=== PATIENT | male | born 1945 | race Caucasian/White ===

== ENCOUNTER 2021-09-23 12:24 | Inpatient (IN) | payer OTHER ==
[2021-09-23] MEDS ORDERED: ACETAMINOPHEN 1000 MG/100 ML BAG IVPB ONE (12:47)
[2021-09-23] MEDS ORDERED: SODIUM CHLORIDE 0.9% 500 ML INFUS.BAG IV ONE ×4 (12:47→17:45)
[2021-09-23] MEDS ORDERED: ALBUTEROL SO4 2.5/IPRATROPIUM 0.5 INH SOL 3 ML VIAL.NEB. NEB ONE (13:18)
[2021-09-23 13:51] LABS: HEMATOCRIT 47.2 % (35.4-49); HEMOGLOBIN 14.8 GM/dL (11.7-16.9); MCH 29.9 pg (25.7-33.7); MCHC 31.4 g/dl (32.0-35.9); MEAN CELL VOLUME 95.3 fl (80-96); MEAN PLT VOLUME 12.1 fl (7.5-11.1); PLATELET COUNT 133 10^3/uL (134-434); RBC 4.95 M/mm3 (4.00-5.60); RDW 15.4 % (11.9-15.9); WHITE BLOOD COUNT 6.6 K/mm3 (4.0-10.0)
[2021-09-23 14:11] LABS: CHLORIDE 124 mmol/L (98-107); SODIUM 151 mmol/L (136-145)
[2021-09-23 14:14] LABS: CALCIUM 8.5 mg/dL (8.5-10.1)
[2021-09-23 14:15] LABS: ANION GAP 8 MMOL/L (8-16); BLOOD UREA NITROGEN 75.8 mg/dL (7-18); CO2 19 mmol/L (21-32); GLUCOSE,RANDOM 177 mg/dL (74-106)
[2021-09-23 14:18] LABS: CREATININE 1.6 mg/dL (0.55-1.3); INR 2.87 (0.83-1.09); PROTHROMBIN TIME (PATIENT) 33.3 SEC (9.7-13.0); SGOT/AST 28 U/L (15-37); SGPT/ALT 20 U/L (13-61)
[2021-09-23 14:19] LABS: ACTIVATED PTT 50.3 SECONDS (25.2-36.5)
[2021-09-23 14:20] LABS: ALK PHOS 117 U/L (45-117); BILIRUBIN,TOTAL 0.5 mg/dL (0.2-1); TOT PROT 6.1 g/dl (6.4-8.2)
[2021-09-23 14:50] LABS: ANISOCYTOSIS 0; HELMET CELLS 0; HOWELL-JOLLY BODIES 0; MACROCYTOSIS 0; OVALOCYTE 0; ROULEAU 0; SICKELED CELLS 0; TARGET CELLS 0; TEAR DROP CELLS 0; TOXIC GRANULATION 0
[2021-09-23] MEDS ORDERED: PIPERACILLIN/TAZOB 3.375 GM 3.375 GM in DEXTROSE 5%-WATER - 50 ML IVPB ONE (14:56)
[2021-09-23] MEDS ORDERED: VANCOMYCIN 1 GM in D5W (PRE-DOCKED) 1,000 MG/250 ML IVPB ONE (14:56)
[2021-09-23] MEDS ORDERED: PIPERACILLIN/TAZOB 3.375 GM 3.375 GM/50 ML BAG IVPB ONE (15:24)
[2021-09-23 15:33] LABS: EPI CELLS 21 /uL (0-25.1); HYALINE CASTS 5 /uL (0-3.1); URINE APPEARANCE CLOUDY; URINE BACTERIA 8 /uL (0-1359); URINE BILIRUBIN NEGATIVE (NEGATIVE); URINE COLOR DK YELLOW; URINE GLUCOSE (UA) NEGATIVE (NEGATIVE); URINE KETONE NEGATIVE (NEGATIVE); URINE LEUK ESTERASE NEGATIVE (NEGATIVE); URINE NITRITE NEGATIVE (NEGATIVE); URINE PROTEIN TRACE (NEGATIVE); URINE RBC 403 /uL (0-23.9); URINE WBC 27 /uL (0-25.8)
[2021-09-23 15:45] LABS: ARTERIAL BLD GAS O2 SATURATION 94.3 % (95-98); ARTERIAL BLOOD GAS BASE EXCESS -7.2 mmol/L (-2-2); ARTERIAL BLOOD GAS PO2 72.8 mmHg (80-100); ARTERIAL BLOOD GAS pH 7.355 (7.350-7.450)
[2021-09-23 15:46] LABS: ALLENS TEST POSITIVE
[2021-09-23] MEDS ORDERED: VANCOMYCIN 1 GRAM (PRE-DOCKED) 1,000 MG/250 ML BAG IVPB ONE (16:01)
[2021-09-23] MEDS ORDERED: HYDROCORTISONE SOD SUCCINATE 100 MG/2 ML VIAL IVPUSH ONE (16:27)
[2021-09-23] MEDS ORDERED: HYDROCORTISONE SOD SUCCINATE 100 MG/2 ML VIAL ONE (16:50)
[2021-09-23] MEDS ORDERED: MIDAZOLAM HCL 2 MG/2 ML SINGLE DOSE VIAL IVPUSH ONE (17:05)
[2021-09-23] MEDS ORDERED: MIDAZOLAM HCL 2 MG/2 ML SINGLE DOSE VIAL ONE (17:08)
[2021-09-23] MEDS ORDERED: NOREPINEPHRINE BITARTRATE 4 MG/4 ML ML IV ONE (18:20)
[2021-09-23] MEDS: NOREPINEPHRINE BITARTRATE 8,000 MCG in SODIUM CHLORIDE 492 ML IV SCH (18:33)
[2021-09-23] MEDS ORDERED: NOREPINEPHRINE BITARTRATE 16,000 MCG in SODIUM CHLORIDE 484 ML IV SCH (19:00)
[2021-09-23] MEDS: DEXTROSE 5%-0.45% SALINE 1,000 ML IV SCH (19:19)
[2021-09-23] MEDS ORDERED: FUROSEMIDE 40 MG/4 ML INJECTABLE VIAL IVPUSH ONE (20:32)
[2021-09-23] MEDS: INSULIN SLIDING SCALE (NOVOLOG) 1 VIAL SQ SCH (23:03)
[2021-09-23] MEDS ORDERED: RAPID SEQUENCE INTUBATION KIT NR ONE (23:06)
[2021-09-23 23:24] LABS: ALLENS TEST POSITIVE; ARTERIAL BLOOD GAS BASE EXCESS -9.9 mmol/L (-2-2); ARTERIAL BLOOD GAS PO2 171.6 mmHg (80-100); ARTERIAL BLOOD GAS pH 7.265 (7.350-7.450)
[2021-09-24] MEDS: PIPERACILLIN/TAZOB 4.5 GM 4.5 GM in DEXTROSE 5%-WATER 100 ML IVPB SCH (00:04)
[2021-09-24] MEDS: MUPIROCIN 2% TOPICAL OINTMENT FOR DECOLONIZATION NS SCH ×3 (00:04→21:29)
[2021-09-24] MEDS: CHLORHEXIDINE GLUCONATE 4% CLEANSER FOR DECOLONIZATION TP SCH ×2 (00:05→21:29)
[2021-09-24] MEDS ORDERED: PIPERACILLIN/TAZOBACTAM 4.5 GM VIAL IVPB ONE ×2 (00:57→08:14)
[2021-09-24] MEDS ORDERED: DEXTROSE 5%-WATER 100 ML IVPB ONE ×2 (00:57→08:15)
[2021-09-24] MEDS: INSULIN SLIDING SCALE (NOVOLOG) 1 VIAL SQ SCH ×4 (06:18→22:54)
[2021-09-24 06:54] LABS: BASO % 0.1 % (0-2.0); HEMATOCRIT 42.1 % (35.4-49); HEMOGLOBIN 13.8 GM/dL (11.7-16.9); LYMPH % 3.1 % (8-40); MCH 30.8 pg (25.7-33.7); MCHC 32.7 g/dl (32.0-35.9); MEAN CELL VOLUME 94.3 fl (80-96); MEAN PLT VOLUME 11.4 fl (7.5-11.1); MONO % 5.9 % (3.8-10.2); NEUT % 90.9 % (42.8-82.8); PLATELET COUNT 127 10^3/uL (134-434); RBC 4.47 M/mm3 (4.00-5.60); RDW 15.8 % (11.9-15.9); WHITE BLOOD COUNT 9.7 K/mm3 (4.0-10.0)
[2021-09-24 07:13] LABS: CALCIUM 8.3 mg/dL (8.5-10.1)
[2021-09-24 07:14] LABS: BLOOD UREA NITROGEN 65.1 mg/dL (7-18); MAGNESIUM 2.2 mg/dL (1.8-2.4)
[2021-09-24 07:17] LABS: CREATININE 1.2 mg/dL (0.55-1.3); PHOSPHOROUS 3.1 mg/dL (2.5-4.9)
[2021-09-24 07:18] LABS: BILIRUBIN,TOTAL 0.5 mg/dL (0.2-1); TOT PROT 5.4 g/dl (6.4-8.2)
[2021-09-24] MEDS ORDERED: LACTATED RINGERS SOLUTION 1,000 ML/1,000 ML INFUS.BAG IV STA ×2 (09:55→13:19)
[2021-09-24] MEDS ORDERED: PIPERACILLIN/TAZOBACTAM 3.375 GM VIAL IVPB ONE ×3 (10:07→21:28)
[2021-09-24] MEDS ORDERED: DEXTROSE 5%-WATER - 50 ML IVPB ONE ×3 (10:07→21:28)
[2021-09-24] MEDS: KCL 10 MEQ IVPB 10 MEQ/100 ML INFUS.BAG IVPB SCH ×2 (10:10→11:11)
[2021-09-24] MEDS: ENOXAPARIN NA (PORCINE) 40 MG/0.4 ML DISP.SYRIN SQ SCH (10:10)
[2021-09-24] MEDS: PIPERACILLIN/TAZOB 3.375 GM 3.375 GM in DEXTROSE 5%-WATER - 50 ML IVPB SCH ×2 (10:10→17:53)
[2021-09-24 11:08] LABS: SARS-CoV-2 NAA Not Detected (Not Detected)
[2021-09-24] MEDS: VANCOMYCIN/WATER FOR INJ (PEG) 1,000 MG/200 ML BAG IVPB SCH ×2 (11:11→21:29)
[2021-09-24] MEDS ORDERED: LACTATED RINGERS SOLUTION 1,000 ML/1,000 ML INFUS.BAG IV SCH (13:30)
[2021-09-24] MEDS: NOREPINEPHRINE BITARTRATE 8,000 MCG in SODIUM CHLORIDE 492 ML IV SCH (18:52)
[2021-09-24] MEDS: DEXTROSE 5%-0.45% SALINE 1,000 ML IV SCH (21:29)
[2021-09-25] MEDS: PIPERACILLIN/TAZOB 3.375 GM 3.375 GM in DEXTROSE 5%-WATER - 50 ML IVPB SCH ×3 (02:22→18:11)
[2021-09-25] MEDS: INSULIN SLIDING SCALE (NOVOLOG) 1 VIAL SQ SCH ×2 (07:18→10:25)
[2021-09-25] MEDS ORDERED: FUROSEMIDE INJECTION 100 MG in DEXTROSE 5%-WATER - 90 ML IVPB SCH (07:30)
[2021-09-25] MEDS ORDERED: FUROSEMIDE INJECTION 100 MG in DEXTROSE 5%-WATER - 40 ML IVPB SCH (08:30)
[2021-09-25] MEDS ORDERED: PIPERACILLIN/TAZOBACTAM 3.375 GM VIAL IVPB ONE ×2 (08:52→18:09)
[2021-09-25] MEDS ORDERED: DEXTROSE 5%-WATER - 50 ML IVPB ONE ×2 (08:53→18:10)
[2021-09-25] MEDS: ENOXAPARIN NA (PORCINE) 40 MG/0.4 ML DISP.SYRIN SQ SCH (09:02)
[2021-09-25] MEDS: MUPIROCIN 2% TOPICAL OINTMENT FOR DECOLONIZATION NS SCH (09:02)
[2021-09-25] MEDS: VANCOMYCIN/WATER FOR INJ (PEG) 1,000 MG/200 ML BAG IVPB SCH ×2 (10:15→21:04)
[2021-09-25 10:31] LABS: BASO % 0.3 % (0-2.0); EOS % 0.1 % (0-4.5); HEMATOCRIT 41.9 % (35.4-49); HEMOGLOBIN 13.2 GM/dL (11.7-16.9); LYMPH % 4.3 % (8-40); MCHC 31.6 g/dl (32.0-35.9); MEAN CELL VOLUME 95.1 fl (80-96); MEAN PLT VOLUME 11.9 fl (7.5-11.1); MONO % 7.5 % (3.8-10.2); NEUT % 87.8 % (42.8-82.8); PLATELET COUNT 113 10^3/uL (134-434); RBC 4.41 M/mm3 (4.00-5.60); RDW 15.7 % (11.9-15.9); WHITE BLOOD COUNT 9.3 K/mm3 (4.0-10.0)
[2021-09-25 10:50] LABS: CALCIUM 8.5 mg/dL (8.5-10.1); MAGNESIUM 2.1 mg/dL (1.8-2.4)
[2021-09-25 10:53] LABS: CREATININE 0.9 mg/dL (0.55-1.3)
[2021-09-25 10:55] LABS: BILIRUBIN,TOTAL 0.5 mg/dL (0.2-1)
[2021-09-25 11:10] LABS: ALBUMIN 1.5 g/dl (3.4-5.0)
[2021-09-25] MEDS ORDERED: DEXTROSE 5%-WATER - 1,000 ML with POTASSIUM CHLORIDE 20 MEQ IV SCH (14:00)
[2021-09-25] MEDS ORDERED: KCL 10 MEQ IVPB 10 MEQ/100 ML INFUS.BAG IVPB SCH (14:00)
[2021-09-25] MEDS: POTASSIUM CHLORIDE 20 MEQ in DEXTROSE 5%-WATER - 1,000 ML IV SCH (15:58)
[2021-09-25] MEDS: NOREPINEPHRINE BITARTRATE 8,000 MCG in SODIUM CHLORIDE 492 ML IV SCH (18:11)
[2021-09-25] MEDS: PIPERACILLIN/TAZOB 4.5 GM 4.5 GM in DEXTROSE 5%-WATER 100 ML IVPB SCH ×3 (19:34→19:39)
[2021-09-26] MEDS ORDERED: PIPERACILLIN/TAZOBACTAM 3.375 GM VIAL IVPB ONE ×3 (01:49→17:48)
[2021-09-26] MEDS ORDERED: DEXTROSE 5%-WATER - 50 ML IVPB ONE ×3 (01:50→17:48)
[2021-09-26] MEDS: PIPERACILLIN/TAZOB 3.375 GM 3.375 GM in DEXTROSE 5%-WATER - 50 ML IVPB SCH ×3 (02:10→18:01)
[2021-09-26] MEDS: POTASSIUM CHLORIDE 20 MEQ in DEXTROSE 5%-WATER - 1,000 ML IV SCH ×2 (04:06→20:03)
[2021-09-26 07:49] LABS: HEMATOCRIT 42.9 % (35.4-49); HEMOGLOBIN 13.9 GM/dL (11.7-16.9); MCH 30.5 pg (25.7-33.7); MCHC 32.5 g/dl (32.0-35.9); MEAN CELL VOLUME 93.7 fl (80-96); MEAN PLT VOLUME 11.3 fl (7.5-11.1); PLATELET COUNT 113 10^3/uL (134-434); RBC 4.57 M/mm3 (4.00-5.60); RDW 15.9 % (11.9-15.9); WHITE BLOOD COUNT 9.5 K/mm3 (4.0-10.0)
[2021-09-26 08:11] LABS: ALBUMIN 1.6 g/dl (3.4-5.0); BLOOD UREA NITROGEN 35.4 mg/dL (7-18); CALCIUM 8.1 mg/dL (8.5-10.1); MAGNESIUM 1.8 mg/dL (1.8-2.4)
[2021-09-26 08:15] LABS: BILIRUBIN,TOTAL 0.7 mg/dL (0.2-1); TOT PROT 5.2 g/dl (6.4-8.2)
[2021-09-26] MEDS: KCL 10 MEQ IVPB 10 MEQ/100 ML INFUS.BAG IVPB SCH ×2 (09:40→10:40)
[2021-09-26] MEDS: ENOXAPARIN NA (PORCINE) 40 MG/0.4 ML DISP.SYRIN SQ SCH (10:46)
[2021-09-26] MEDS: VANCOMYCIN/WATER FOR INJ (PEG) 1,000 MG/200 ML BAG IVPB SCH (10:53)
[2021-09-26] MEDS: INSULIN SLIDING SCALE (NOVOLOG) 1 VIAL SQ SCH ×2 (18:01→22:42)
[2021-09-26] MEDS: NOREPINEPHRINE BITARTRATE 8,000 MCG in SODIUM CHLORIDE 492 ML IV SCH (20:03)
[2021-09-27] MEDS ORDERED: DEXTROSE 5%-WATER - 50 ML IVPB ONE ×4 (00:49→23:42)
[2021-09-27] MEDS ORDERED: PIPERACILLIN/TAZOBACTAM 3.375 GM VIAL IVPB ONE ×4 (00:49→23:42)
[2021-09-27] MEDS: PIPERACILLIN/TAZOB 3.375 GM 3.375 GM in DEXTROSE 5%-WATER - 50 ML IVPB SCH ×3 (01:31→18:01)
[2021-09-27] MEDS: POTASSIUM CHLORIDE 20 MEQ in DEXTROSE 5%-WATER - 1,000 ML IV SCH ×2 (05:19→16:30)
[2021-09-27 06:46] LABS: HEMATOCRIT 40.3 % (35.4-49); HEMOGLOBIN 12.9 GM/dL (11.7-16.9); MCHC 32.1 g/dl (32.0-35.9); MEAN CELL VOLUME 93.3 fl (80-96); MEAN PLT VOLUME 11.8 fl (7.5-11.1); PLATELET COUNT 123 10^3/uL (134-434); RBC 4.32 M/mm3 (4.00-5.60); RDW 15.3 % (11.9-15.9); WHITE BLOOD COUNT 9.7 K/mm3 (4.0-10.0)
[2021-09-27] MEDS: INSULIN SLIDING SCALE (NOVOLOG) 1 VIAL SQ SCH ×4 (06:59→22:20)
[2021-09-27 07:07] LABS: CALCIUM 7.5 mg/dL (8.5-10.1)
[2021-09-27 07:08] LABS: ALBUMIN 1.4 g/dl (3.4-5.0); BLOOD UREA NITROGEN 25.7 mg/dL (7-18); MAGNESIUM 1.6 mg/dL (1.8-2.4)
[2021-09-27 07:10] LABS: PHOSPHOROUS 1.3 mg/dL (2.5-4.9)
[2021-09-27 07:11] LABS: CREATININE 0.8 mg/dL (0.55-1.3)
[2021-09-27 07:12] LABS: BILIRUBIN,TOTAL 0.5 mg/dL (0.2-1); TOT PROT 4.9 g/dl (6.4-8.2)
[2021-09-27] MEDS ORDERED: POTASSIUM PHOSPHATE 30 MM in DEXTROSE 5%-WATER - 250 ML IVPB ONE (08:34)
[2021-09-27] MEDS ORDERED: MAGNESIUM SULF 50% (8.12 MEQ/2 ML-1 GM VIAL) IVPB ONE ×2 (08:34→14:06)
[2021-09-27] MEDS ORDERED: FUROSEMIDE 40 MG/4 ML INJECTABLE VIAL IVPUSH ONE (08:44)
[2021-09-27] MEDS: ENOXAPARIN NA (PORCINE) 40 MG/0.4 ML DISP.SYRIN SQ SCH (10:16)
[2021-09-27] MEDS: ALBUTEROL SO4 2.5/IPRATROPIUM 0.5 INH SOL 3 ML VIAL.NEB. NEB SCH ×2 (14:55→20:40)
[2021-09-27] MEDS: KCL 10 MEQ IVPB 10 MEQ/100 ML INFUS.BAG IVPB SCH ×2 (16:08→17:09)
[2021-09-27] MEDS: NOREPINEPHRINE BITARTRATE 8,000 MCG in SODIUM CHLORIDE 492 ML IV SCH (18:02)
[2021-09-27] MEDS ORDERED: AMINO ACIDS 4.25%/D5W 1,000 ML IV SCH (20:00)
[2021-09-28] MEDS: PIPERACILLIN/TAZOB 3.375 GM 3.375 GM in DEXTROSE 5%-WATER - 50 ML IVPB SCH ×3 (01:49→17:25)
[2021-09-28] MEDS: INSULIN SLIDING SCALE (NOVOLOG) 1 VIAL SQ SCH ×4 (06:07→21:36)
[2021-09-28 07:20] LABS: HEMATOCRIT 39.4 % (35.4-49); MCH 30.5 pg (25.7-33.7); MEAN CELL VOLUME 92.4 fl (80-96); PLATELET COUNT 111 10^3/uL (134-434); RBC 4.26 M/mm3 (4.00-5.60); RDW 15.3 % (11.9-15.9); WHITE BLOOD COUNT 8.3 K/mm3 (4.0-10.0)
[2021-09-28 07:36] LABS: CALCIUM 7.9 mg/dL (8.5-10.1)
[2021-09-28 07:37] LABS: ALBUMIN 1.6 g/dl (3.4-5.0); BLOOD UREA NITROGEN 22.8 mg/dL (7-18); MAGNESIUM 2.2 mg/dL (1.8-2.4)
[2021-09-28 07:40] LABS: CREATININE 0.6 mg/dL (0.55-1.3); PHOSPHOROUS 1.6 mg/dL (2.5-4.9)
[2021-09-28 07:41] LABS: BILIRUBIN,TOTAL 0.5 mg/dL (0.2-1); TOT PROT 4.7 g/dl (6.4-8.2)
[2021-09-28] MEDS: ALBUTEROL SO4 2.5/IPRATROPIUM 0.5 INH SOL 3 ML VIAL.NEB. NEB SCH ×3 (08:36→20:37)
[2021-09-28] MEDS ORDERED: PIPERACILLIN/TAZOBACTAM 3.375 GM VIAL IVPB ONE ×2 (09:08→17:00)
[2021-09-28] MEDS ORDERED: DEXTROSE 5%-WATER - 50 ML IVPB ONE ×2 (09:08→17:00)
[2021-09-28] MEDS: ENOXAPARIN NA (PORCINE) 40 MG/0.4 ML DISP.SYRIN SQ SCH (09:45)
[2021-09-28] MEDS ORDERED: THIAMINE HCL 200 MG/2 ML VIAL IVPB SCH (10:00)
[2021-09-28] MEDS ORDERED: POTASSIUM PHOSPHATE 30 MM in DEXTROSE 5%-WATER - 250 ML IVPB ONE (10:30)
[2021-09-28] MEDS ORDERED: VANCOMYCIN 1 GM in D5W (PRE-DOCKED) 1,000 MG/250 ML IVPB ONE (10:47)
[2021-09-28] MEDS: KCL 10 MEQ IVPB 10 MEQ/100 ML INFUS.BAG IVPB SCH ×4 (11:15→13:15)
[2021-09-28] MEDS: AMINO ACIDS 4.25%/D5W 1,000 ML IV SCH ×2 (21:36→21:39)
[2021-09-29] MEDS ORDERED: PIPERACILLIN/TAZOBACTAM 3.375 GM VIAL IVPB ONE ×3 (01:21→17:00)
[2021-09-29] MEDS ORDERED: DEXTROSE 5%-WATER - 50 ML IVPB ONE ×3 (01:21→17:00)
[2021-09-29] MEDS: PIPERACILLIN/TAZOB 3.375 GM 3.375 GM in DEXTROSE 5%-WATER - 50 ML IVPB SCH ×3 (02:09→17:17)
[2021-09-29] MEDS: AMINO ACIDS 4.25%/D5W 1,000 ML IV SCH ×4 (03:01→21:53)
[2021-09-29] MEDS: INSULIN SLIDING SCALE (NOVOLOG) 1 VIAL SQ SCH ×4 (06:35→22:08)
[2021-09-29] MEDS: ALBUTEROL SO4 2.5/IPRATROPIUM 0.5 INH SOL 3 ML VIAL.NEB. NEB SCH ×3 (07:30→20:55)
[2021-09-29 07:44] LABS: HEMATOCRIT 39.8 % (35.4-49); MCHC 32.5 g/dl (32.0-35.9); MEAN CELL VOLUME 92.4 fl (80-96); MEAN PLT VOLUME 11.2 fl (7.5-11.1); PLATELET COUNT 135 10^3/uL (134-434); RBC 4.31 M/mm3 (4.00-5.60); RDW 15.1 % (11.9-15.9); WHITE BLOOD COUNT 8.4 K/mm3 (4.0-10.0)
[2021-09-29 08:08] LABS: CALCIUM 7.8 mg/dL (8.5-10.1)
[2021-09-29 08:09] LABS: ALBUMIN 1.4 g/dl (3.4-5.0); BLOOD UREA NITROGEN 21.3 mg/dL (7-18); MAGNESIUM 2.1 mg/dL (1.8-2.4)
[2021-09-29 08:12] LABS: BILIRUBIN,TOTAL 0.5 mg/dL (0.2-1); CREATININE 0.6 mg/dL (0.55-1.3)
[2021-09-29] MEDS: THIAMINE HCL 200 MG/2 ML VIAL IVPB SCH (09:27)
[2021-09-29] MEDS: ENOXAPARIN NA (PORCINE) 40 MG/0.4 ML DISP.SYRIN SQ SCH (09:29)
[2021-09-29] MEDS ORDERED: POTASSIUM PHOSPHATE 15 MM in DEXTROSE 5%-WATER - 250 ML IVPB ONE (14:22)
[2021-09-30] MEDS ORDERED: PIPERACILLIN/TAZOBACTAM 3.375 GM VIAL IVPB ONE ×3 (01:37→18:14)
[2021-09-30] MEDS ORDERED: DEXTROSE 5%-WATER - 50 ML IVPB ONE ×3 (01:37→18:14)
[2021-09-30] MEDS: PIPERACILLIN/TAZOB 3.375 GM 3.375 GM in DEXTROSE 5%-WATER - 50 ML IVPB SCH ×3 (01:47→18:27)
[2021-09-30] MEDS: INSULIN SLIDING SCALE (NOVOLOG) 1 VIAL SQ SCH ×4 (06:09→22:08)
[2021-09-30] MEDS: ALBUTEROL SO4 2.5/IPRATROPIUM 0.5 INH SOL 3 ML VIAL.NEB. NEB SCH ×3 (08:08→20:46)
[2021-09-30 09:07] LABS: BLOOD UREA NITROGEN 17.6 mg/dL (7-18); CALCIUM 7.8 mg/dL (8.5-10.1)
[2021-09-30 09:09] LABS: ALBUMIN 1.3 g/dl (3.4-5.0)
[2021-09-30 09:11] LABS: BILIRUBIN,TOTAL 0.4 mg/dL (0.2-1); CREATININE 0.5 mg/dL (0.55-1.3); PHOSPHOROUS 1.8 mg/dL (2.5-4.9); TOT PROT 4.8 g/dl (6.4-8.2)
[2021-09-30 09:12] LABS: HEMATOCRIT 39.9 % (35.4-49); HEMOGLOBIN 12.7 GM/dL (11.7-16.9); MCH 29.6 pg (25.7-33.7); MCHC 31.7 g/dl (32.0-35.9); MEAN CELL VOLUME 93.3 fl (80-96); MEAN PLT VOLUME 11.4 fl (7.5-11.1); PLATELET COUNT 131 10^3/uL (134-434); RBC 4.28 M/mm3 (4.00-5.60); RDW 15.4 % (11.9-15.9); WHITE BLOOD COUNT 6.3 K/mm3 (4.0-10.0)
[2021-09-30] MEDS ORDERED: VANCOMYCIN/WATER FOR INJ (PEG) 1,000 MG/200 ML BAG IVPB ONE (11:00)
[2021-09-30] MEDS: THIAMINE HCL 200 MG/2 ML VIAL IVPB SCH (13:58)
[2021-09-30] MEDS: ENOXAPARIN NA (PORCINE) 40 MG/0.4 ML DISP.SYRIN SQ SCH (15:13)
[2021-09-30] MEDS: KCL 10 MEQ IVPB 10 MEQ/100 ML INFUS.BAG IVPB SCH ×3 (15:16→16:38)
[2021-09-30 15:29] VITALS: BMI 26.4
[2021-09-30] MEDS: POTASSIUM CHLORIDE 20 MEQ in AMINO ACIDS 4.25%/D5W 1,000 ML IV SCH (18:27)
[2021-10-01] MEDS ORDERED: PIPERACILLIN/TAZOBACTAM 3.375 GM VIAL IVPB ONE ×3 (00:38→16:17)
[2021-10-01] MEDS ORDERED: DEXTROSE 5%-WATER - 50 ML IVPB ONE ×3 (00:38→16:17)
[2021-10-01] MEDS: PIPERACILLIN/TAZOB 3.375 GM 3.375 GM in DEXTROSE 5%-WATER - 50 ML IVPB SCH ×3 (01:01→16:59)
[2021-10-01] MEDS: INSULIN SLIDING SCALE (NOVOLOG) 1 VIAL SQ SCH ×4 (06:38→22:39)
[2021-10-01] MEDS: ALBUTEROL SO4 2.5/IPRATROPIUM 0.5 INH SOL 3 ML VIAL.NEB. NEB SCH ×3 (07:35→19:49)
[2021-10-01] MEDS: POTASSIUM CHLORIDE 20 MEQ in AMINO ACIDS 4.25%/D5W 1,000 ML IV SCH ×2 (09:39→17:39)
[2021-10-01] MEDS: ENOXAPARIN NA (PORCINE) 40 MG/0.4 ML DISP.SYRIN SQ SCH (09:39)
[2021-10-01] MEDS: VANCOMYCIN/WATER FOR INJ (PEG) 1,000 MG/200 ML BAG IVPB SCH (17:26)
[2021-10-02] MEDS ORDERED: DEXTROSE 5%-WATER - 50 ML IVPB ONE ×3 (00:58→17:24)
[2021-10-02] MEDS ORDERED: PIPERACILLIN/TAZOBACTAM 3.375 GM VIAL IVPB ONE ×3 (00:58→17:23)
[2021-10-02] MEDS: PIPERACILLIN/TAZOB 3.375 GM 3.375 GM in DEXTROSE 5%-WATER - 50 ML IVPB SCH ×3 (02:06→17:28)
[2021-10-02] MEDS: INSULIN SLIDING SCALE (NOVOLOG) 1 VIAL SQ SCH ×4 (06:00→21:23)
[2021-10-02] MEDS: ALBUTEROL SO4 2.5/IPRATROPIUM 0.5 INH SOL 3 ML VIAL.NEB. NEB SCH ×3 (07:31→20:10)
[2021-10-02] MEDS: ENOXAPARIN NA (PORCINE) 40 MG/0.4 ML DISP.SYRIN SQ SCH (10:03)
[2021-10-02] MEDS: POTASSIUM CHLORIDE 20 MEQ in AMINO ACIDS 4.25%/D5W 1,000 ML IV SCH (14:34)
[2021-10-02] MEDS: VANCOMYCIN/WATER FOR INJ (PEG) 1,000 MG/200 ML BAG IVPB SCH (18:24)
[2021-10-03] MEDS ORDERED: DEXTROSE 5%-WATER - 50 ML IVPB ONE ×3 (00:58→16:55)
[2021-10-03] MEDS ORDERED: PIPERACILLIN/TAZOBACTAM 3.375 GM VIAL IVPB ONE ×3 (00:58→16:55)
[2021-10-03] MEDS: PIPERACILLIN/TAZOB 3.375 GM 3.375 GM in DEXTROSE 5%-WATER - 50 ML IVPB SCH ×3 (01:26→17:06)
[2021-10-03] MEDS: INSULIN SLIDING SCALE (NOVOLOG) 1 VIAL SQ SCH ×4 (06:07→22:20)
[2021-10-03] MEDS: ALBUTEROL SO4 2.5/IPRATROPIUM 0.5 INH SOL 3 ML VIAL.NEB. NEB SCH ×3 (07:53→20:02)
[2021-10-03] MEDS: ENOXAPARIN NA (PORCINE) 40 MG/0.4 ML DISP.SYRIN SQ SCH (10:50)
[2021-10-03] MEDS: POTASSIUM CHLORIDE 20 MEQ in AMINO ACIDS 4.25%/D5W 1,000 ML IV SCH ×2 (11:18→16:28)
[2021-10-03] MEDS: VANCOMYCIN/WATER FOR INJ (PEG) 1,000 MG/200 ML BAG IVPB SCH (17:29)
[2021-10-04] MEDS ORDERED: PIPERACILLIN/TAZOBACTAM 3.375 GM VIAL IVPB ONE ×3 (01:14→16:44)
[2021-10-04] MEDS ORDERED: DEXTROSE 5%-WATER - 50 ML IVPB ONE ×3 (01:15→16:44)
[2021-10-04] MEDS: PIPERACILLIN/TAZOB 3.375 GM 3.375 GM in DEXTROSE 5%-WATER - 50 ML IVPB SCH ×3 (01:23→17:10)
[2021-10-04] MEDS: INSULIN SLIDING SCALE (NOVOLOG) 1 VIAL SQ SCH ×4 (06:51→21:54)
[2021-10-04 08:22] LABS: ALBUMIN 1.4 g/dl (3.4-5.0); BLOOD UREA NITROGEN 15.1 mg/dL (7-18)
[2021-10-04 08:24] LABS: CREATININE 0.4 mg/dL (0.55-1.3)
[2021-10-04 08:26] LABS: BILIRUBIN,TOTAL 0.4 mg/dL (0.2-1)
[2021-10-04] MEDS: POTASSIUM CHLORIDE 20 MEQ in AMINO ACIDS 4.25%/D5W 1,000 ML IV SCH ×2 (08:35→17:34)
[2021-10-04] MEDS: ALBUTEROL SO4 2.5/IPRATROPIUM 0.5 INH SOL 3 ML VIAL.NEB. NEB SCH ×3 (09:00→20:26)
[2021-10-04] MEDS: ENOXAPARIN NA (PORCINE) 40 MG/0.4 ML DISP.SYRIN SQ SCH (09:06)
[2021-10-04 09:14] LABS: HEMATOCRIT 39.6 % (35.4-49); HEMOGLOBIN 12.4 GM/dL (11.7-16.9); MCHC 31.3 g/dl (32.0-35.9); MEAN CELL VOLUME 92.7 fl (80-96); MEAN PLT VOLUME 11.7 fl (7.5-11.1); PLATELET COUNT 148 10^3/uL (134-434); RBC 4.27 M/mm3 (4.00-5.60); RDW 15.4 % (11.9-15.9); WHITE BLOOD COUNT 6.8 K/mm3 (4.0-10.0)
[2021-10-04] MEDS: VANCOMYCIN/WATER FOR INJ (PEG) 1,000 MG/200 ML BAG IVPB SCH (17:51)
[2021-10-05] MEDS: INSULIN SLIDING SCALE (NOVOLOG) 1 VIAL SQ SCH ×4 (06:50→21:02)
[2021-10-05] MEDS: ALBUTEROL SO4 2.5/IPRATROPIUM 0.5 INH SOL 3 ML VIAL.NEB. NEB SCH ×3 (07:55→20:32)
[2021-10-05] MEDS ORDERED: INSULIN (NOVOLOG) ASPART 100 UNITS/ML 10ML VIAL ONE (08:58)
[2021-10-05] MEDS: ENOXAPARIN NA (PORCINE) 40 MG/0.4 ML DISP.SYRIN SQ SCH (09:32)
[2021-10-05] MEDS: POTASSIUM CHLORIDE 20 MEQ in AMINO ACIDS 4.25%/D5W 1,000 ML IV SCH ×2 (11:43→17:11)
[2021-10-05] MEDS: VANCOMYCIN/WATER FOR INJ (PEG) 1,000 MG/200 ML BAG IVPB SCH (17:11)
[2021-10-06] MEDS: INSULIN SLIDING SCALE (NOVOLOG) 1 VIAL SQ SCH ×3 (06:16→17:20)
[2021-10-06] MEDS: ALBUTEROL SO4 2.5/IPRATROPIUM 0.5 INH SOL 3 ML VIAL.NEB. NEB SCH ×2 (08:25→14:30)
[2021-10-06 09:12] LABS: CALCIUM 8.5 mg/dL (8.5-10.1)
[2021-10-06 09:13] LABS: ALBUMIN 1.3 g/dl (3.4-5.0); MAGNESIUM 1.7 mg/dL (1.8-2.4)
[2021-10-06 09:16] LABS: CREATININE 0.3 mg/dL (0.55-1.3)
[2021-10-06 09:17] LABS: BILIRUBIN,TOTAL 0.4 mg/dL (0.2-1)
[2021-10-06 09:18] LABS: TOT PROT 4.9 g/dl (6.4-8.2)
[2021-10-06] MEDS: POTASSIUM CHLORIDE 20 MEQ in AMINO ACIDS 4.25%/D5W 1,000 ML IV SCH (10:17)
[2021-10-06 14:08] LABS: SARS-CoV-2 NAA Not Detected (Not Detected)
[2021-10-06 14:46] VITALS: BP 138/86; PULSE 109; TEMP 98.3
[2021-10-06] MEDS: VANCOMYCIN/WATER FOR INJ (PEG) 1,000 MG/200 ML BAG IVPB SCH (17:21)
== END 2021-10-06 18:08 | DRG 871 ==
LOC: JER 12:24 → JERBED 18:53 → JICU 20:20 → J7W 09-28 15:24
PROVIDERS: ADMIT Family Medicine; ATTEND Family Medicine
PROC: 05H633Z Insertion of Infusion Device into Left Subclavian Vein, Percutaneous Approach (ICD-10-PCS; principal; 2021-09-24)
PROC: B547ZZA Ultrasonography of Left Subclavian Vein, Guidance (ICD-10-PCS; 2021-09-24)
PROC: 06HN33Z Insertion of Infusion Device into Left Femoral Vein, Percutaneous Approach (ICD-10-PCS; 2021-09-24)
PROC: B54CZZA Ultrasonography of Left Lower Extremity Veins, Guidance (ICD-10-PCS; 2021-09-24)
PROC: 0W9B30Z Drainage of Left Pleural Cavity with Drainage Device, Percutaneous Approach (ICD-10-PCS; 2021-09-24)
DX: A41.02 Sepsis due to Methicillin resistant Staphylococcus aureus (principal); E11.00 Type 2 diabetes mellitus with hyperosmolarity without nonketotic hyperglycemic-hyperosmolar coma (NKHHC); R65.21 Severe sepsis with septic shock; J96.01 Acute respiratory failure with hypoxia; E87.0 Hyperosmolality and hypernatremia; J44.1 Chronic obstructive pulmonary disease with (acute) exacerbation; J93.9 Pneumothorax, unspecified; N17.9 Acute kidney failure, unspecified; I10 Essential (primary) hypertension; J44.9 Chronic obstructive pulmonary disease, unspecified; K11.21 Acute sialoadenitis; F03.90 Unspecified dementia, unspecified severity, without behavioral disturbance, psychotic disturbance, mood disturbance, and anxiety; E87.6 Hypokalemia; D69.6 Thrombocytopenia, unspecified; E86.0 Dehydration; R21 Rash and other nonspecific skin eruption; E11.65 Type 2 diabetes mellitus with hyperglycemia; E87.8 Other disorders of electrolyte and fluid balance, not elsewhere classified
CPT/HCPCS: 36415; 36600; 70450-TC; 71045-TC-FY; 71250-TC; 74176-TC; 74230-TC-FY; 80053; 81003; 82272; 82550; 82553; 82803; 82962; 83036; 83605; 83735; 84100; 84439; 84443; 84484; 85025; 85027; 85610; 85730; 86850; 86900; 86901; 87040; 87086; 87186; 87804; 87899; 92611-GN; 93005; 93010; 93306-TC; 94010; 94640; 97161-GP; 99291; 99292; C9803-CS; G0480; U0003; U0005

== ENCOUNTER 2023-07-26 21:55 | Inpatient (IN) | payer OTHER ==
[2023-07-26 23:22] LABS: VENOUS BASE EXCESS 3.1 mmol/L (-2-2); VENOUS O2 SATURATION 51.7 % (70-80); VENOUS PCO2 44.9 mmHg (38-52); VENOUS PH 7.415 (7.310-7.410)
[2023-07-26 23:23] LABS: BASO % 0.2 % (0-2.0); EOS % 0.1 % (0-4.5); HEMATOCRIT 38.5 % (35.4-49); HEMOGLOBIN 12.7 GM/dL (11.7-16.9); LYMPH % 6.4 % (8-40); MCH 30.6 pg (25.7-33.7); MEAN CELL VOLUME 92.7 fl (80-96); MEAN PLT VOLUME 10.6 fl (7.5-11.1); MONO % 11.8 % (3.8-10.2); NEUT % 81.5 % (42.8-82.8); PLATELET COUNT 171 10^3/uL (134-434); RBC 4.15 M/mm3 (4.00-5.60); WHITE BLOOD COUNT 10.1 K/mm3 (4.0-10.0)
[2023-07-26] MEDS ORDERED: ACETAMINOPHEN INJECTION 100 ML IVPB ONE (23:37)
[2023-07-26 23:39] LABS: EPI CELLS 9 /uL (0-25.1); HYALINE CASTS 1 /uL (0-3.1); URINE APPEARANCE CLEAR; URINE BACTERIA 1376 /uL (0-1359); URINE BILIRUBIN NEGATIVE (NEGATIVE); URINE COLOR DK YELLOW; URINE GLUCOSE (UA) NEGATIVE (NEGATIVE); URINE KETONE TRACE (NEGATIVE); URINE LEUK ESTERASE TRACE (NEGATIVE); URINE NITRITE POSITIVE (NEGATIVE); URINE PROTEIN 1+ (NEGATIVE); URINE RBC 17 /uL (0-23.9); URINE WBC 28 /uL (0-25.8)
[2023-07-26 23:50] LABS: ACTIVATED PTT 40.5 SECONDS (25.2-36.5); INR 1.17 (0.83-1.09); PROTHROMBIN TIME (PATIENT) 13.6 SEC (9.7-13.0)
[2023-07-26 23:51] LABS: POTASSIUM 4.4 mmol/L (3.5-5.1)
[2023-07-26 23:53] LABS: ALBUMIN 2.6 g/dl (3.4-5.0); BLOOD UREA NITROGEN 32.3 mg/dL (7-18); CALCIUM 8.8 mg/dL (8.5-10.1)
[2023-07-26] MEDS: ACETAMINOPHEN 1000 MG/100 ML BAG IVPB ONE (23:56)
[2023-07-26 23:58] LABS: BILIRUBIN,TOTAL 0.7 mg/dL (0.2-1); TOT PROT 6.8 g/dl (6.4-8.2)
[2023-07-27] MEDS ORDERED: AMPICILLIN NA/SULBACTAM NA 3 GM VIAL ONE (01:40)
[2023-07-27] MEDS: AMPICILLIN NA/SULBACTAM NA 3 GM in DEXTROSE 5%-WATER 100 ML IVPB ONE (01:53)
[2023-07-27] MEDS: morphine SULFATE 4 MG/ML VIAL IVPUSH ONE (02:19)
[2023-07-27] MEDS ORDERED: VANCOMYCIN/WATER 1250 MG 1,250 MG/250 ML BAG IVPB ONE (02:20)
[2023-07-27] MEDS: VANCOMYCIN/WATER 1250 MG 1,250 MG/250 ML BAG IVPB ONE (02:30)
[2023-07-27] MEDS ORDERED: MAGNESIUM HYDROX 2400MG/30ML ORAL SUSPENSION 30 ML CUP PO PRN (05:54)
[2023-07-27 06:23] LABS: BASO % 0.4 % (0-2.0); HEMATOCRIT 41.2 % (35.4-49); HEMOGLOBIN 13.1 GM/dL (11.7-16.9); LYMPH % 8.6 % (8-40); MCH 29.8 pg (25.7-33.7); MCHC 31.8 g/dl (32.0-35.9); MEAN PLT VOLUME 10.7 fl (7.5-11.1); MONO % 12.3 % (3.8-10.2); NEUT % 78.7 % (42.8-82.8); PLATELET COUNT 147 10^3/uL (134-434); RBC 4.38 M/mm3 (4.00-5.60); RDW 14.9 % (11.9-15.9); WHITE BLOOD COUNT 11.9 K/mm3 (4.0-10.0)
[2023-07-27 06:42] LABS: POTASSIUM 3.9 mmol/L (3.5-5.1)
[2023-07-27 06:44] LABS: BLOOD UREA NITROGEN 31.5 mg/dL (7-18); CALCIUM 9.2 mg/dL (8.5-10.1)
[2023-07-27 06:48] LABS: CREATININE 1.1 mg/dL (0.55-1.3)
[2023-07-27] MEDS: TAMSULOSIN HCL 0.4 MG CAP PO SCH (08:00)
[2023-07-27] MEDS: ALBUTEROL SO4 2.5/IPRATROPIUM 0.5 INH SOL 3 ML VIAL.NEB. NEB SCH (08:00)
[2023-07-27] MEDS ORDERED: ALBUTEROL SO4 2.5/IPRATROPIUM 0.5 INH SOL 3 ML VIAL.NEB. NEB ONE (09:25)
[2023-07-27] MEDS ORDERED: LORazepam 0.5 MG TABLET PO PRN (10:00)
[2023-07-27] MEDS: POTASSIUM CHLORIDE ORAL LIQUID 20 MEQ/15 ML PO SCH (10:40)
[2023-07-27] MEDS: CITALOPRAM HYDROBROMIDE 20 MG TABLET PO SCH (10:41)
[2023-07-27] MEDS: CARVEDILOL 25 MG TABLET (FP) PO SCH (10:41)
[2023-07-27] MEDS: BUMETANIDE 0.5 MG TABLET PO SCH (12:12)
[2023-07-27] MEDS: LACTATED RINGERS SOLUTION 1,000 ML/1,000 ML INFUS.BAG IV SCH (17:32)
[2023-07-27] MEDS ORDERED: AMPICILLIN NA/SULBACTAM NA 1.5 GM in SODIUM CHLORIDE 100 ML IVPB SCH (18:00)
[2023-07-27] MEDS: AMPICILLIN NA/SULBACTAM NA 1.5 GM in SODIUM CHLORIDE 100 ML IVPB SCH (18:48)
[2023-07-27] MEDS: valACYclovir HCL 500 MG TABLET (FP) PO SCH (18:48)
[2023-07-27] MEDS: MELATONIN 5 MG TABLETS PO SCH (21:59)
[2023-07-27] MEDS: FINASTERIDE 5 MG TABLET (FP) PO SCH (21:59)
[2023-07-27] MEDS: VANCOMYCIN/WATER FOR INJ (PEG) 1,000 MG/200 ML BAG IVPB SCH (22:00)
[2023-07-27] MEDS ORDERED: VANCOMYCIN 1,000 MG in DEXTROSE 5%-WATER - 250 ML IVPB SCH (23:00)
[2023-07-28 07:39] LABS: BASO % 0.4 % (0-2.0); EOS % 0.3 % (0-4.5); HEMATOCRIT 33.3 % (35.4-49); HEMOGLOBIN 11.3 GM/dL (11.7-16.9); LYMPH % 9.3 % (8-40); MCH 31.5 pg (25.7-33.7); MCHC 34.1 g/dl (32.0-35.9); MEAN CELL VOLUME 92.3 fl (80-96); MEAN PLT VOLUME 11.1 fl (7.5-11.1); MONO % 12.5 % (3.8-10.2); NEUT % 77.5 % (42.8-82.8); PLATELET COUNT 149 10^3/uL (134-434); RBC 3.61 M/mm3 (4.00-5.60); RDW 14.9 % (11.9-15.9); WHITE BLOOD COUNT 8.5 K/mm3 (4.0-10.0)
[2023-07-28 07:44] LABS: POTASSIUM 3.7 mmol/L (3.5-5.1)
[2023-07-28 07:47] LABS: ALBUMIN 2.2 g/dl (3.4-5.0); BLOOD UREA NITROGEN 40.2 mg/dL (7-18); CALCIUM 8.8 mg/dL (8.5-10.1); MAGNESIUM 2.1 mg/dL (1.8-2.4)
[2023-07-28 07:51] LABS: CREATININE 1.2 mg/dL (0.55-1.3)
[2023-07-28 07:55] LABS: BILIRUBIN,TOTAL 0.6 mg/dL (0.2-1)
[2023-07-28] MEDS: VANCOMYCIN/WATER FOR INJ (PEG) 1,000 MG/200 ML BAG IVPB SCH (12:11)
[2023-07-28 19:05] VITALS: BMI 28.8
[2023-07-29] MEDS: CEFAZOLIN SODIUM 2 GM in DEXTROSE 5%-WATER 100 ML IVPB SCH (15:09)
[2023-07-31 22:53] VITALS: BP 125/75; PULSE 63; RESP 20; TEMP 98.2
== END 2023-08-01 01:45 | DRG 871 ==
LOC: JER 21:55 → JERBED 07-27 05:40 → J7W 07-27 09:54
PROVIDERS: ADMIT Family Medicine; ATTEND Family Medicine
PROC: 02HV33Z Insertion of Infusion Device into Superior Vena Cava, Percutaneous Approach (ICD-10-PCS; principal; 2023-07-31)
PROC: B518ZZA Fluoroscopy of Superior Vena Cava, Guidance (ICD-10-PCS; 2023-07-31)
DX: A41.01 Sepsis due to Methicillin susceptible Staphylococcus aureus (principal); R53.2 Functional quadriplegia; L03.211 Cellulitis of face; I96 Gangrene, not elsewhere classified; N17.9 Acute kidney failure, unspecified; N39.0 Urinary tract infection, site not specified; J96.11 Chronic respiratory failure with hypoxia; M84.478A Pathological fracture, left toe(s), initial encounter for fracture; I11.0 Hypertensive heart disease with heart failure; I50.9 Heart failure, unspecified; K11.21 Acute sialoadenitis; R13.12 Dysphagia, oropharyngeal phase; F03.90 Unspecified dementia, unspecified severity, without behavioral disturbance, psychotic disturbance, mood disturbance, and anxiety; E11.9 Type 2 diabetes mellitus without complications; J44.9 Chronic obstructive pulmonary disease, unspecified; R91.1 Solitary pulmonary nodule; B96.20 Unspecified Escherichia coli [E. coli] as the cause of diseases classified elsewhere; N40.0 Benign prostatic hyperplasia without lower urinary tract symptoms
CPT/HCPCS: 0241U-QW; 36415; 36569; 70487-TC; 70491-TC; 71045-TC-FY; 73630-TC-LT; 74230-TC-FY; 77001-TC-FY; 80048; 80053; 81003; 82550; 82803; 83605; 83735; 84484; 85025; 85610; 85651; 85730; 86140; 86850; 86900; 86901; 87040; 87086; 87186; 87635; 92611-GN; 93005; 93010; 93306-TC; 94640; 97162-GP; 99285-25; C1751; J0131; Q9967